=== PATIENT | female | born 1965 | race Caucasian/White ===

== ENCOUNTER 2017-06-28 12:09 | Observation (INO) | payer OTHER ==
[~2017-06-28 12:09] MED LIST: ASPI81CH6 CHEW; ATEN50TA PO; AZEL1SPR2 EACH NARE; BUSP1TAB PO; CLON2TAB PO; HYDR200T3 PO; KLOR20TA3 PO; LEVO100T5 PO; LISD60 PO; PANT40TA3 PO; ROSU1TAB4 PO; TOPI100T8 PO; ZOLP10TA3 PO
[2017-06-28] MEDS ORDERED: SODIUM CHLORIDE 0.9% FLUSH 10 ML FLUSH IV FLUSH PRN (16:30)
[2017-06-28] MEDS ORDERED: ACETAMINOPHEN 500 MG CPLT PO PRN (16:30)
[2017-06-28] MEDS ORDERED: ONDANSETRON HCL 4 MG/2 ML VIAL IV PUSH PRN (16:30)
[2017-06-28] MEDS ORDERED: NITROGLYCERIN 0.4 MG SL 25 TABS/BTL SL PRN (16:30)
[2017-06-28 16:47] VITALS: BP 110/66; PULSE 51; RESP 21; TEMP 95.8; O2SAT 99
--- NOTE | 2017-06-28 17:07 | HHI.HP ---
HPI Primary Care Physician PCP in [place], [place] Chief Complaint Chest pain History of Present Illness 51-year-old female with history of lupus, GERD, José's, and a pacemaker ( placed for neurocardiac syncope) presents to emergency room for further evaluation of chest heaviness. Reports symptoms occurred intermittently for at least a month. Today's episode began around 5:40 AM. Location substernal. Characterized as heaviness, pressure, and "like someone sitting on my chest." No radiation of pain. Duration constant, waxing and waning in intensity. No associated symptoms of dyspnea, nausea, vomiting, or diaphoresis. No known precipitating or relieving factors. Report chest pressure episodes occur twice weekly, generally lasting hours, with occasional palpitations or feelings of "SVT." Recently moved to [facility]. Seen her PCP in [place] Sunday for a routine checkup. Informed PCP of feelings of SVT lasting approximately 1 hour on 06/11/2017. Pacemaker interrogated and SVT verified during her reported time. Her PCP recommended to find a local venture capitalist due to her recent move. Review of Systems General: No fatigue,weakness, fever, chills, or recent illness. Has been her general state of health. Recently moved from [place], [place]. Used to live in [place], [place] and maintained contact with her PCP there while she visits family. HEENT: No KU CV: Continues to have chest pain as stated above. Denies feelings of palpitations today. History of neurocardiac syncope, pacemaker placed in 2003. RESP: No SOB, cough, or recent illness. GI: No nausea, vomiting, or bowel changes. : No dysuria EXT: No lower leg edema MS: No discomfort, change in ROM, injury, or known trauma. NEURO: No difficulty with balance, LOC, motor/sensory deficits PSYCH: No anxiety, depression, or situational stress Past Family Social History Allergies: Coded Allergies: tramadol (Verified Allergy, Severe, FACIAL PARALYSIS, 06/28/17) Past Medical History Nahun, GERD, Hastimoto's thyroiditis Past Surgical History Hysterectomy, appendectomy, right shoulder fracture with repair Reported Medications Reported Meds & Active Scripts Active Reported Zolpidem (Zolpidem Tartrate) 10 Mg Tab 10 Mg PO HS PRN Vyvanse (Lisdexamfetamine Dimesylate) 60 Mg Cap 60 Mg PO DAILY Topiramate 100 Mg Tablet 100 Mg PO DAILY Rosuvastatin (Rosuvastatin Calcium) 5 Mg Tab 5 Mg PO DAILY Pantoprazole (Pantoprazole Sodium) 40 Mg Tab 40 Mg PO DAILY Levothyroxine (Levothyroxine Sodium) 100 Mcg Tab 100 Mcg PO DAILY Klor-Con M20 (Potassium Chloride Microencaps) 20 Meq Tab 20 Meq PO DAILY Hydroxychloroquine (Hydroxychloroquine Sulfate) 200 Mg Tab 200 Mg PO BID Takw with food Clonazepam 2 Mg Tab 2 Mg PO HS Buspirone (Buspirone HCl) 7.5 Mg Tab 7.5 Mg PO BID Azelastine Nasal [place] (Azelastine HCl) 0.1% [place] 2 [place] EACH NARE BID Atenolol 50 Mg Tab 50 Mg PO BID Aspirin Low Dose (Aspirin) 81 Mg Chew 81 Mg CHEW HS Probiotics twice a day Active Ordered Medications Current Medications Medications (Trade) Dose Ordered Sig/Rosario Route Start Time Stop Time Status Last Admin (NS Flush) 2 ml UNSCH PRN IV FLUSH 06/28/17 16:30 (NS Flush) 2 ml BID IV FLUSH 06/28/17 21:00 (Tylenol) 500 mg Q4H PRN PO 06/28/17 16:30 (Zofran Inj) 4 mg Q6H PRN IV PUSH 06/28/17 16:30 (Nitrostat Sl) 0.4 mg Q5M PRN SL 06/28/17 16:30 (Aspirin) 325 mg DAILY PO 06/29/17 09:00 Family History Father age 54 from [place]. Social History No known diabetes, hypertension, or coronary artery disease. Known hyperlipidemia. Quit smoking in her early 20s. Smoked again after her divorce in [address]654 months. Currently smokes occasional "disposable cigarettes" socially. Rare alcohol use. Denies any drug use. Endorses an active lifestyle. Past cardiac testing No recent stress testing. Most recent stress test approximately 3-4 years ago reported to be unremarkable. Pacemaker interrogated Sunday06/25/17-SVT reported with heart rate in 180s. Physical Exam Physical Exam GENERAL: Alert WN, WD, NAD, pleasant, female HEAD: NC, AT EYES: Sclera clear, conjunctiva without injection ENT: Mucous membranes pink and moist CV: Paced regular rhythm, without murmur, rub, or gallop. RESP: Clear lungs throughout bilateral, no crackles, wheeze, rhonchi, symmetrical chest rise, nonlabored, able to speak in full sentences ABD: Soft, NT, ND, no masses, positive bowel tones EXT: Pulses +24, no dependent edema MS: Normal tone 4 extremities, no obvious deformities, full range of motion NEURO: motor strength 5/5 PSYCH: A+O 3, pleasant affect, appropriate speech, insight, and judgment SKIN: Normal turgor, normal texture Laboratory CBC (completed [facility]) unremarkable. CMP (completed [facility]) potassium 3.3, creatinine 1.10. Otherwise unremarkable. Troponin 2-less 0.02. D-dimer 0.21. Imaging Chest x-ray read by radiologist as no acute cardio pulmonary process. Course EKG 2 EKGs read atrial paced rhythm Caprini VTE Risk Assessment Caprini VTE Risk Assessment: No/Low Risk (score <= 1) Caprini Risk Assessment Model Point Value = 1 Point Value = 2 Point Value = 3 Point Value = 5 Age 41-60 Minor surgery BMI > 25 kg/m2 Swollen legs Varicose veins or History of unexplained or recurrent spontaneous Oral contraceptives or hormone replacement Sepsis (< 1 month) Serious lung disease, including pneumonia (< 1 month) Abnormal pulmonary function Acute myocardial infarction Congestive heart failure (< 1 month) History of inflammatory bowel disease Medical patient at bed rest Age 61-74 Arthroscopic surgery Major open surgery (> 45 min) Laparoscopic surgery (> 45 min) Malignancy Confined to bed (> 72 hours) Immobilizing plaster cast Central venous access Age >= 75 History of VTE Family history of VTE Factor V Leiden Prothrombin [id number] Lupus anticoagulant Anticardiolipin antibodies Elevated serum homocysteine Heparin-induced thrombocytopenia Other congenital or acquired thrombophilia Stroke (< 1 month) Elective arthroplasty Hip, pelvis, or leg fracture Acute spinal cord injury (< 1 month) Prophylaxis Regimen Total Risk Factor Score Risk Level Prophylaxis Regimen 0-1 Low Early ambulation 2 Moderate Order ONE of the following: *Sequential Compression Device (SCD) *Heparin 5000 units SQ BID 3-4 Higher Order ONE of the following medications: *Heparin 5000 units SQ TID *Enoxaparin/Lovenox 40 mg SQ daily (WT < 150 kg, CrCl > 30 mL/min) *Enoxaparin/Lovenox 30 mg SQ daily (WT < 150 kg, CrCl > 10-29 mL/min) *Enoxaparin/Lovenox 30 mg SQ BID (WT < 150 kg, CrCl > 30 mL/min) AND/OR *Sequential Compression Device (SCD) 5 or more Highest Order ONE of the following medications: *Heparin 5000 units SQ TID (Preferred with Epidurals) *Enoxaparin/Lovenox 40 mg SQ daily (WT < 150 kg, CrCl > 30 mL/min) *Enoxaparin/Lovenox 30 mg SQ daily (WT < 150 kg, CrCl > 10-29 mL/min) *Enoxaparin/Lovenox 30 mg SQ BID (WT < 150 kg, CrCl > 30 mL/min) AND *Sequential Compression Device (SCD) Assessment and Plan Assessment and Plan #1 Atypical chest pain-admitted chest pain center. Rule out with 3 sets of EKGs , cardiac enzymes, and monitored overnight. Will be seen and evaluated by Dr. Jessi Zarate. Discussed likelihood of completing chemical stress test in a.m. after assessment by venture capitalist. Patient is agreeable to plan of care. #2 Hyperlipidemia-continue rosuvastatin #3 GERD-continue Protonix #4 Tobacco use-strongly encouraged and stressed the importance of tobacco cessation. Instructed to quit smoking. Nisreen Collins Jun 28, 2017 17:07
[2017-06-28] MEDS ORDERED: ZOLPIDEM TARTRATE 10 MG TAB PO PRN (17:45)
[2017-06-28] MEDS: POTASSIUM CHLORIDE 20 MEQ CONTROLLED RELEASE TAB PO SCH (18:30)
[2017-06-28] MEDS ORDERED: KETOROLAC TROMETHAMINE 30 MG/ML (IVP) VIAL IV PUSH ONE (18:30)
[2017-06-28] MEDS ORDERED: PILL SPLITTER OTHER PRN (18:30)
[2017-06-28 18:45] VITALS: O2SAT 99
[2017-06-28 20:30] VITALS: PULSE 51
[2017-06-28] MEDS ORDERED: clonazePAM 1 MG TAB PO SCH (21:00)
[2017-06-28] MEDS: SODIUM CHLORIDE 0.9% FLUSH 10 ML FLUSH IV FLUSH SCH (21:00)
[2017-06-28] MEDS: ATENOLOL 50 MG TAB PO SCH ×2 (21:00→21:57)
[2017-06-28 21:01] VITALS: O2SAT 98
[2017-06-28 21:11] VITALS: BP 97/59; PULSE 54; RESP 16; TEMP 98; O2SAT 94
[2017-06-28] MEDS: HYDROXYCHLOROQUINE SULFATE 200 MG TAB PO SCH (21:57)
[2017-06-28] MEDS: busPIRone HCL 5 MG TAB PO SCH (21:58)
[2017-06-29] VITALS (9 sets, daily range): BP systolic 86–97; BP diastolic 50–51; PULSE 47–67; RESP 16; TEMP 97.4–97.8; O2SAT 98–100
[2017-06-29] MEDS ORDERED: LEVOTHYROXINE SODIUM 100 MCG TAB PO SCH (06:00)
--- NOTE | 2017-06-29 08:00 | PD.CARD.PN ---
Subjective Subjective Remarks Sleep well overnight. States "I think I still have chest pressure but difficult to differentiate due to back pain. Reports current midback pain related to hospital mattress and chronic back issues. Chest pressure only described as "much improved, I think." States Toradol given yesterday didn't help with chest pain "I don't think." Expressed concern regarding exercise stress testing. Reports past testing completed chemically. Objective Medications Current Medications Medications (Trade) Dose Ordered Sig/Rosario Route Start Time Stop Time Status Last Admin (NS Flush) 2 ml UNSCH PRN IV FLUSH 06/28/17 16:30 (NS Flush) 2 ml BID IV FLUSH 06/28/17 21:00 06/28/17 21:00 (Tylenol) 500 mg Q4H PRN PO 06/28/17 16:30 (Zofran Inj) 4 mg Q6H PRN IV PUSH 06/28/17 16:30 (Nitrostat Sl) 0.4 mg Q5M PRN SL 06/28/17 16:30 (Aspirin) 325 mg DAILY PO 06/29/17 09:00 (Buspar) 7.5 mg BID PO 06/28/17 21:00 06/28/17 21:58 (KlonoPIN) 2 mg HS PO 06/28/17 21:00 06/28/17 21:57 (Plaquenil) 200 mg BID PO 06/28/17 21:00 06/28/17 21:57 (Synthroid) 100 mcg DAILY@0600 PO 06/29/17 06:00 (Protonix) 40 mg DAILY PO 06/29/17 09:00 (KCl) 20 meq DAILY PO 06/28/17 18:30 06/28/17 18:30 (Topamax) 100 mg DAILY PO 06/29/17 09:00 (Ambien) 10 mg HS PRN PO 06/28/17 17:45 (Pill Splitter) 1 ea UNSCH PRN OTHER 06/28/17 18:30 (Lipitor) 10 mg DAILY PO 06/29/17 09:00 Vital Signs / I&O Vital Signs Date Time Temp Pulse Resp B/P (MAP) Pulse Ox O2 Delivery O2 Flow Rate FiO2 06/29/17 04:05 61 06/29/17 03:33 97.4 59 16 89/51 (64) 99 06/29/17 00:20 47 06/29/17 00:11 97.4 61 16 90/51 (64) 98 06/28/17 21:11 98.0 54 16 97/59 (72) 94 06/28/17 21:01 98 21 06/28/17 20:30 51 06/28/17 19:41 22 06/28/17 18:45 99 06/28/17 16:47 95.8 51 21 110/66 (81) 99 I/O 06/28/17 06/28/17 06/28/17 06/29/17 06/29/17 06/29/17 07:00 15:00 23:00 07:00 15:00 23:00 Intake Total 500 ml Balance 500 ml Intake Oral 500 ml # Voids 1 Physical Exam GENERAL: Sleeping upon entering room, woke up slowing. WN, WD, NAD, pleasant, female HEAD: NC, AT EYES: Sclera clear CV: Paced, regular, rhythm without murmur, rub, gallop. Chest wall nontender with palpation. RESP: Clear lungs throughout bilateral, symmetrical chest rise, nonlabored EXT: Pulses +24, no dependent edema MS: Normal tone 4 extremities, nontender, no obvious deformities, full range of motion NEURO: motor strength 5/5 PSYCH: A+O 3, pleasant affect, appropriate speech,insight and judgment. Somewhat of a poor historian with past cardiac issues and reasons for pacemaker placement. SKIN: Normal turgor, normal texture, warm, dry Assessment and Plan Assessment and Plan #1 Atypical chest pain-admitted chest pain center. Seen and evaluated by Dr. Zarate. Ruled out with 3 sets of EKGs and 2 sets cardiac enzymes, 3rd set drawn yesterday but not resulted. Stat 3rd troponin ordered and notified RN 3rd troponin. After 3rd troponin results, proceed with chemical stress test. Morphine 2mg IV x1 dose. Reports tolerating morphine IV multiple times without problem after documented tramadol allergy. Tramadol allergy reported to be left facial droop. #2 Hyperlipidemia-continue rosuvastatin #3 GERD-continue Protonix #4 Tobacco use-strongly encouraged and stressed the importance of tobacco cessation. Instructed to quit smoking. Nisreen Collins Jun 29, 2017 08:00
[2017-06-29] MEDS: busPIRone HCL 5 MG TAB PO SCH (08:06)
[2017-06-29] MEDS: HYDROXYCHLOROQUINE SULFATE 200 MG TAB PO SCH (08:07)
[2017-06-29] MEDS: POTASSIUM CHLORIDE 20 MEQ CONTROLLED RELEASE TAB PO SCH (08:09)
[2017-06-29] MEDS: SODIUM CHLORIDE 0.9% FLUSH 10 ML FLUSH IV FLUSH SCH (08:11)
[2017-06-29] MEDS ORDERED: TOPIRAMATE 100 MG TAB PO SCH (09:00)
[2017-06-29] MEDS ORDERED: ASPIRIN 325 MG TAB PO SCH (09:00)
[2017-06-29] MEDS ORDERED: NON-FORMULARY DRUG (Rosuvastatin 5 MG) PO SCH (09:00)
[2017-06-29] MEDS ORDERED: PANTOPRAZOLE SOD 40 MG DELAYED RELEASE TAB PO SCH (09:00)
[2017-06-29] MEDS ORDERED: ATORVASTATIN 10 MG TAB PO SCH (09:00)
[2017-06-29] MEDS ORDERED: MORPHINE SULFATE 2 MG/ML INJ IV PUSH ONE (09:30)
[2017-06-29] MEDS ORDERED: REGADENOSON INJ 0.4 MG/5 ML SYR ONE (10:27)
[2017-06-29] MEDS ORDERED: SODIUM CHLOR 0.9% 250 ML INJ 250 ML IV ONE (12:00)
--- NOTE | 2017-06-29 14:36 | EKG ---
Date Performed: 06/28/2017 Time Performed: 15:55:06 PTAGE: 51 years EKG: ELECTRONIC ATRIAL PACEMAKER LOW QRS VOLTAGE IN PRECORDIAL LEADS ABNORMAL RHYTHM ECG Since PREVIOUS TRACING , no significant change noted DOCTOR: Jessi Zarate Interpretating Date/Time 06/29/2017 14:34:52
--- NOTE | 2017-06-29 16:19 | RADRPT ---
EXAM DATE/TIME: 06/29/2017 10:44 [facility] COMPARISON: No previous studies available for comparison. INDICATIONS : Substernal chest pain with dyspnea. Angina DOSE: 25.5 mCi Tc99m Myoview at stress 8.6 mCi Tc99m Myoview at rest REST HEART RATE: 76 BPM TARGET HEART RATE: 143 BPM MAX HEART RATE: 144 BPM REST BLOOD PRESSURE: 84/56 mmHg MAX BLOOD PRESSURE: 110/62 mmHg EJECTION FRACTION: 70% MEDICAL HISTORY : Lupus. SVT. SURGICAL HISTORY : Hysterectomy. Pacemaker. Rotator cuff, right. ENCOUNTER: Initial ACUITY: 1 day PAIN SCALE: 5/10 LOCATION: Substernal chest TECHNIQUE: The patient underwent upright treadmill exercise in the chest pain center. Continuous ECG tracing wa s monitored during stress. Gated SPECT imaging was performed after stress, and conventional SPECT im aging was performed at rest. The examination was performed on a SPECT/CT scanner, both attenuation-c orrected and non-corrected datasets were reviewed. FINDINGS: DISTRIBUTION: The maximum perfused segment at stress is in the lateral wall wall. Moderate gut activity does obscur e the inferior wall. PERFUSION STUDY: The pattern of perfusion at stress is within normal limits. GATED STUDY: There is intact wall motion and thickening without hypokinetic or dyskinetic segments. CONCLUSION: Negative for stress-induced ischemia RISK CATEGORY: Low (<1% Annual Mortality Rate) Dickson Voss MD FACR on June 29, 2017 at 16:17 Board Certified Radiologist. This report was verified electronically.
--- NOTE | 2017-06-29 16:33 | HHI.DCPOC ---
Discharge Care Plan Diagnosis: (1) Atypical chest pain (2) History of cardiac pacemaker Goals to Promote Your Health * To prevent worsening of your condition and complications * To maintain your health at the optimal level Directions to Meet Your Goals Take your medications as prescribed Follow your dietary instruction Follow activity as directed Keep your appointments as scheduled Take your immunizations and boosters as scheduled If your symptoms worsen call your PCP, if no PCP go to Urgent Care Center or Emergency Room Smoking is Dangerous to Your Health. Avoid second hand smoke Call the 24-hour hour crisis hotline for domestic abuse at Nisreen Collins Jun 29, 2017 16:33
--- NOTE | 2017-06-29 17:03 | HHI.DS ---
Discharge Summary Admission Date Jun 28, 2017 at 15:52 Discharge Date: Jun 29, 2017 Admitting Diagnosis Chest pain (1) History of lupus Diagnosis: Principal ICD Codes: Z87.39 - Personal history of other diseases of the musculoskeletal system and connective tissue Status: Chronic (2) Atypical chest pain Diagnosis: Principal ICD Codes: R07.89 - Other chest pain Status: Acute (3) History of cardiac pacemaker Diagnosis: Principal ICD Codes: Z95.0 - Presence of cardiac pacemaker Status: Chronic Brief History 51-year-old female with history of lupus presents to emergency room for further evaluation intermittent chest pressure last 1-2 months. Admitted to chest pain center. Ruled out with 3 sets of EKGs and cardiac enzymes. Completed nuclear exercise stress test which did not suggest stress-induced ischemia. Significant Findings Laboratory Tests Test 06/29/17 08:20 Troponin I LESS THAN 0.02 NG/ML Imaging Last Impressions Myocardial Perfusion Scan Nuc Med 06/29/17 0000 Signed Impressions: Service Date/Time: Sunday, June 29, 2017 10:44 - CONCLUSION: Negative for stress-induced ischemia RISK CATEGORY: Low (<1%% Annual Mortality Rate) Dickson Voss MD FACR PE at Discharge GENERAL: Alert WN, WD, NAD, pleasant, female HEAD: NC, AT CV: RRR, without murmur, rub, gallop. RESP: Clear lungs throughout bilateral, no crackles, wheeze, rhonchi, symmetrical chest rise, nonlabored, able to speak in full sentences EXT: Pulses +24, no dependent edema MS: Normal tone 4 extremities, full range of motion NEURO: motor strength 5/5, gait WNL PSYCH: A+O 3, pleasant affect, appropriate speech, insight and judgment SKIN: Normal turgor, normal texture Pt Condition on Discharge: Good Discharge Disposition: Discharge Home Discharge Instructions DIET: Follow Instructions for: Heart Healthy Diet Activities you can perform: Regular-No Restrictions Additional Information Lexiscan results discussed in length with patient. Encouraged establishing with a local furnace liner and asphalt plant worker. Follow-up with PCP in 2 weeks. Instructed her to return emergency room for any further cardiac concerns. Copy of Lexiscan result given for her records. Nisreen Collins Jun 29, 2017 17:03
--- NOTE | 2017-06-30 11:00 | TR ---
Date Performed: 06/29/2017 Time Performed: 15:30:59 DOCTOR: Joe Teran DRUG LIST: CLINICAL HISTORY: REASON FOR TEST: REASON FOR ENDING: OBSERVATION: CONCLUSION: Fredy protocol completed. Modified speed and incline in stage 3. Stopped sec to reac lyn target heart rate and leg fatigue. Maximum KR=318 Target HR Achieved=86.0% Maximum SW=022/60 Tot al Exercise Time=8:16. No reprod chest pain. No ectopy. Normal bp response. Recovery quick and unrema rkable. Nuclear images pending. COMMENTS: Conclusion: Normal treadmill exercise. No evidence of ischemia. Radionuclide was inje cted one minute prior to ending test. Nuclear imaging and interpretation are pending.
== END 2017-06-29 20:37 | disposition home or self-care (01) ==
LOC: NEDDLT 15:42 → NEPGCP 15:52
PROVIDERS: ADMIT Internal Medicine Interventional Cardiology; ATTEND Internal Medicine Interventional Cardiology
DX: R07.89 Other chest pain (principal); I47.1 Supraventricular tachycardia; M32.9 Systemic lupus erythematosus, unspecified; M54.6 Pain in thoracic spine; I20.9 Angina pectoris, unspecified; R06.00 Dyspnea, unspecified; E78.5 Hyperlipidemia, unspecified; K21.9 Gastro-esophageal reflux disease without esophagitis; E06.3 Autoimmune thyroiditis; F17.200 Nicotine dependence, unspecified, uncomplicated; Z95.0 Presence of cardiac pacemaker; Z79.899 Other long term (current) drug therapy; Z79.82 Long term (current) use of aspirin
CPT/HCPCS: 71010; 78452; 80048; 82550; 82552; 83735; 84484; 85025; 85379; 85610; 85730; 93005; 93017; 96374; 96375; A9502; G0378; J1885; J2270; J2785; J7050